=== PATIENT | male | born 1940 | race Caucasian/White ===

== ENCOUNTER → 2016-12-08 | Outpatient (CLI) | payer MEDICARE, OTHER ==
[~2016-12-08] MED LIST: ACET-1757 PO; ASPI-621 PO; DUTA0.5C PO; MIRA25TA PO; OXYC5TAB3 PO; VALS160T3 PO
== END | disposition home or self-care (01) ==
LOC: CFH 14:16
PROVIDERS: ATTEND Internal Medicine Critical Care Medicine
DX: J98.11 Atelectasis (principal); K76.89 Other specified diseases of liver
CPT/HCPCS: 71250

== ENCOUNTER → 2016-12-08 | Outpatient (CLI) | payer MEDICARE, OTHER | END | disposition home or self-care (01) | LOC: CVU 12:46 | PROVIDERS: ATTEND Internal Medicine Critical Care Medicine | DX: I51.7 Cardiomegaly (principal); I08.1 Rheumatic disorders of both mitral and tricuspid valves; I10 Essential (primary) hypertension | CPT/HCPCS: 93306 ==

== ENCOUNTER → 2017-01-02 | Outpatient (CLI) | payer MEDICARE | END | disposition home or self-care (01) | LOC: RAD 11:50 | PROVIDERS: ATTEND Internal Medicine Critical Care Medicine | DX: R06.02 Shortness of breath (principal); Q79.1 Other congenital malformations of diaphragm | CPT/HCPCS: 71020; 76000 ==

== ENCOUNTER → 2017-02-05 | Outpatient (CLI) | payer MEDICARE | END | disposition home or self-care (01) | LOC: CFH 08:17 | PROVIDERS: ATTEND Nurse Practitioner Family | DX: R07.89 Other chest pain (principal) | CPT/HCPCS: 78452; 93017; A9502 ==

== ENCOUNTER → 2018-10-13 | Outpatient (CLI) | payer MEDICARE ==
[~2018-10-13] MED LIST changes: +ACET-1600 PO; +AMLO10TA8 PO; +ASPI-496 PO; -ASPI-621 PO; +ASPI81TA45 PO; +CALC-76 PO; +CHOL2000 PO; +LACT1CAP35 PO; +LORA-247 PO; +LOSA50TA14 PO; +METO50TA82 PO; +MULT-717 PO; +NAPR220C2 PO
[2018-10-13 12:19] LABS: MICROSCOPIC NOT IND
[2018-10-13 12:26] LABS: ALANINE AMINOTRANSFERASE 25 U/L (12-78); ANION GAP 6 mmol/L (5-15); CALCIUM 9.3 mg/dL (8.5-10.1); CHLORIDE 103 mmol/L (98-107); CREATININE 0.97 mg/dL (0.7-1.3)
[2018-10-13 12:28] LABS: ALKALINE PHOSPHATASE 74 U/L (45-117); BILIRUBIN,TOTAL 0.6 mg/dL (0.2-1.0); TOTAL PROTEIN 7.6 g/dL (6.4-8.2)
== END | disposition home or self-care (01) ==
LOC: STAR 10:46
PROVIDERS: ATTEND Urology
DX: Z01.818 Encounter for other preprocedural examination (principal); N40.1 Benign prostatic hyperplasia with lower urinary tract symptoms
CPT/HCPCS: 36415; 80053; 81003; 87086; 93005

== ENCOUNTER 2018-10-20 09:08 | Inpatient (IN) | payer MEDICARE ==
[~2018-10-20] VITALS: Ht 175.3 cm; Wt 95.5 kg
[2018-10-20] MEDS ORDERED: LACTATED RINGERS 1,000 ML IV SCH (10:02)
[2018-10-20] MEDS ORDERED: MIDAZOLAM 1 MG/ML, 2ML ONE (12:01)
[2018-10-20] MEDS ORDERED: FENTANYL PF 100 MCG/2ML ONE ×2 (12:02→13:45)
[2018-10-20] MEDS ORDERED: CIPROFLOXACIN 400MG/200ML PMX ONE (12:41)
[2018-10-20] MEDS ORDERED: ROCURONIUM 10 MG/ML,10ML ONE (12:41)
[2018-10-20] MEDS ORDERED: NEOSTIGMINE 1 MG/ML, 10ML ONE (12:41)
[2018-10-20] MEDS ORDERED: GLYCOPYRROLATE 0.2MG/1ML, 5ML ONE (12:41)
[2018-10-20] MEDS ORDERED: SUCCINYLCHOLINE 20 MG/ML, 10ML ONE (12:41)
[2018-10-20] MEDS ORDERED: PROPOFOL 10 MG/ML, 20ML ONE (12:41)
[2018-10-20] MEDS ORDERED: KETOROLAC 30 MG/1 ML IV PRN (13:00)
[2018-10-20] MEDS ORDERED: METOCLOPRAMIDE 5 MG/ML, 2ML IV PRN (13:00)
[2018-10-20] MEDS ORDERED: HYDROmorphone 1 MG/ML, 1ML IV PRN (13:00)
[2018-10-20] MEDS ORDERED: LABETALOL 5MG/ML, 20ML IV PRN (13:00)
[2018-10-20] MEDS ORDERED: MEPERIDINE/PF 25MG/0.5ML IVPush PRN (13:00)
[2018-10-20] MEDS ORDERED: OXYcodone 5 MG/5 ML ORAL.SOL UDC PO PRN (13:00)
[2018-10-20] MEDS ORDERED: ONDANSETRON 2MG/ML, 2ML IVPush PRN (13:00)
[2018-10-20] MEDS ORDERED: PROMETHAZINE 25 MG/ML, 1ML IV PRN (13:00)
[2018-10-20] MEDS ORDERED: hydrALAzine 20 MG/ML, 1ML IV PRN (13:00)
[2018-10-20] MEDS ORDERED: ALBUTEROL SULFATE 2.5 MG/3 ML NPPB PRN (13:00)
[2018-10-20] MEDS ORDERED: OXYcodone 5 MG/5 ML ORAL.SOL UDC ONE (13:45)
[2018-10-20] MEDS: FENTANYL PF 100 MCG/2ML IV PRN ×3 (13:47→14:14)
[2018-10-20] MEDS ORDERED: HYDROmorphone 1 MG/ML, 1ML ONE (14:35)
[2018-10-20] MEDS ORDERED: ONDANSETRON 2MG/ML, 2ML IV PRN (16:00)
[2018-10-20] MEDS ORDERED: OPIUM/BELLADONNA SUPP.RECT 16.2-30 MG PR PRN (16:00)
[2018-10-20] MEDS: POLYETHYLENE GLYCOL 17 GM PACKET PO SCH (16:30)
[2018-10-20] MEDS ORDERED: DUTASTERIDE 0.5 MG CAPSULE PO SCH (17:30)
[2018-10-20] MEDS: CEFAZOLIN PMX 1GM/50ML 50 ML IV SCH (17:48)
[2018-10-20] MEDS: D5%-0.45NACL+KCL 20MEQ 1,000 ML IV SCH (17:49)
[2018-10-20] MEDS ORDERED: ACETAMINOPHEN 500 MG TABLET PO PRN (18:30)
[2018-10-20 20:08] VITALS: BP 141/83
[2018-10-20 23:53] VITALS: BP 107/53
[2018-10-21] MEDS: CEFAZOLIN PMX 1GM/50ML 50 ML IV SCH (02:01)
[2018-10-21] MEDS: D5%-0.45NACL+KCL 20MEQ 1,000 ML IV SCH ×2 (02:02→12:00)
[2018-10-21 04:00] VITALS: BP 106/62
[2018-10-21 05:23] LABS: ANION GAP 7 mmol/L (5-15); CHLORIDE 103 mmol/L (98-107)
[2018-10-21 07:57] VITALS: BP 120/70
[2018-10-21] MEDS: POLYETHYLENE GLYCOL 17 GM PACKET PO SCH (08:30)
[2018-10-21] MEDS ORDERED: MULTIVITAMIN 1 TABLET PO SCH (09:00)
[2018-10-21] MEDS ORDERED: LOSARTAN 50MG TABLET PO SCH (09:00)
[2018-10-21] MEDS ORDERED: LORATADINE 10 MG TABLET PO SCH (09:00)
[2018-10-21] MEDS ORDERED: CHOLECALCIFEROL 1,000 UNIT TABLET PO SCH (09:00)
[2018-10-21] MEDS ORDERED: AMLODIPINE 2.5 MG TABLET PO SCH (09:00)
[2018-10-21] MEDS ORDERED: METOPROLOL TARTRATE 50 MG TABLET PO SCH (09:00)
[2018-10-21] MEDS ORDERED: LACTOBACILLUS CHEW TABLET PO SCH (09:00)
[2018-10-21 12:21] VITALS: BP 138/79
== END 2018-10-21 15:00 | disposition home or self-care (01) | DRG 713 ==
LOC: OUT 09:08 → 4NOR 15:14 → DCLOUNGE 10-21 14:50
PROVIDERS: ADMIT Urology; ATTEND Urology
PROC: 0VB08ZZ Excision of Prostate, Via Natural or Artificial Opening Endoscopic (ICD-10-PCS; principal; 2018-10-20 12:00)
DX: N40.0 Benign prostatic hyperplasia without lower urinary tract symptoms (principal); E87.1 Hypo-osmolality and hyponatremia; I10 Essential (primary) hypertension
CPT/HCPCS: 36415; 80048; 85014; 85018; 88305; G0378; J0690; J0744; J1170; J2250; J2405; J2704; J2710; J3010; J3490; J0330; J3480

== ENCOUNTER → 2019-03-14 | Outpatient (CLI) | payer MEDICARE ==
[~2019-03-14] MED LIST changes: +REGADENOSON 0.4 MG/5 ML SYRINGE ONE
== END | disposition home or self-care (01) ==
LOC: CFH 08:45
PROVIDERS: ATTEND Internal Medicine Cardiovascular Disease
DX: I45.19 Other right bundle-branch block (principal)
CPT/HCPCS: 78452; 93017; A9502; J2785

== ENCOUNTER 2020-11-20 10:44 | Outpatient (CLI) | payer MEDICARE ==
[~2020-11-20 10:44] MED LIST changes: -ACET-1757 PO; +ACET-2065 PO; +AMLO-211 PO; -AMLO10TA8 PO; -OXYC5TAB3 PO; +OXYC5TAB98 PO; -REGADENOSON 0.4 MG/5 ML SYRINGE ONE
== END 2020-11-20 23:59 | disposition home or self-care (01) ==
LOC: CFH 10:44
PROVIDERS: ATTEND Internal Medicine
DX: I36.1 Nonrheumatic tricuspid (valve) insufficiency (principal); R06.02 Shortness of breath; R07.9 Chest pain, unspecified; R91.8 Other nonspecific abnormal finding of lung field; Q79.1 Other congenital malformations of diaphragm
CPT/HCPCS: 71250; 93306

== ENCOUNTER → 2021-02-21 | Outpatient (CLI) | payer MEDICARE | END | disposition home or self-care (01) | LOC: CFH 07:55 | PROVIDERS: ATTEND Internal Medicine Cardiovascular Disease | DX: R06.02 Shortness of breath (principal); R07.9 Chest pain, unspecified; I10 Essential (primary) hypertension | CPT/HCPCS: 78452; 93017; A9502 ==